=== PATIENT | male | born 1965 | race Caucasian/White ===

== ENCOUNTER 2022-10-10 08:47 | Emergency (ER) | payer OTHER, BC, SELFPAY ==
[2022-10-10] VITALS (11 sets, daily range): BP systolic 130–170; BP diastolic 79–103; PULSE 59–71; RESP 16; TEMP 36.8; O2SAT 96–99
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
== END 2022-10-10 09:52 | disposition home or self-care (01) ==
PROVIDERS: Emergency Provider Family Medicine; PCP Family Medicine
DX: M54.9 Dorsalgia, unspecified (principal); V53.0XXA Driver of pick-up truck or van injured in collision with car, pick-up truck or van in nontraffic accident, initial encounter
CPT/HCPCS: 99283; 99284; 99291

== ENCOUNTER 2025-04-21 08:59 | Emergency (ER) | payer BC, SELFPAY ==
[2025-04-21 09:01] VITALS: BP 153/97; PULSE 74; RESP 16; TEMP 35.5; O2SAT 99; BMI 27.4
--- OUTSIDE RECORDS SUMMARY | 2025-04-21 09:01 | XMS_ITS | Clinical Summary ---
Author Organization [facility] Address [address] [place] [address] Care Team Providers Care Deck Lid Fitter Name Role Phone Janusz Burger APRN, CNP Primary Care Provid er Source Comments You are receiving this document as you are listed as the primary care provider,follow-up provider, or the patient has been referred to you for consultation.This is in compliance with the Medicare and[place] Incentive Program,which states Providers who transition their patient to another setting of careor provider of care or refers their patient to another provider of care shouldprovide summary care record for each transition of care or referral. [facility] Allergies No known active allergies Medications UNKNOWN MEDICATION Indications : PN: 12/29/2008 Active aspirin 81 MG tablet Take 81 mg by mouth daily. Active simvastatin (ZOCOR) 20 MG tablet Take 20 mg by mouth daily at bedtime. Active Active Problems Problem Noted Date Diagnosed Date Hyperlipidemia 01/21/2005 Overview (04/03/2016): LW Onset: [id number] Immunizations Immunization Administration Dates Next Due TDAP (ADACEL) 12/29/2008 Td 04/30/2004,05/21/1998 Social History Tobacco Use Types Packs/Day Years Used Date Smoking Tobacco: Never Assessed Sex and Gender Information Value Date Recorded Sex Assigned at Not on file Legal Sex Male 5:31 AM CDT Gender Identity Not on file Sexual Orientation Not on file Last Filed Vital Signs Vital Sign Reading Time Taken Comments Blood Pressure 138/88 12/29/2008 11:09 AM CDT Pulse 60 12/29/2008 11:09 AM CDT Temperature 37.3 C (99.1 F) 02/28/2007 11:42 AM CDT ORAL C: 37.3 C Respiratory Rate 14 02/28/2007 11:4 2 AM CDT Oxygen Saturation - - Inhaled Oxygen Concentration - - Weight 82.6 kg (181 lb 15.8 oz) 12/29/2008 11:09 AM CDT C: 82.6kg Height 173.4 cm (5' 8.25) 12/29/2008 1 1:09 AM CDT C: 173.4cm Body Mass Index 27.47 12/29/2008 11:09 AM CDT Plan of Treatment Health Maintenance Due Date Last Done Comments Colon Cancer Screening Plan Due 1966 Adult Preventive Visit 1984 HepB Vaccine (1) 1985 Cholesterol 12/29/2013 12/29/2008, 03/05/2007, 05/26/2006, Additional history exists Pneumococcal Vaccine 50+ Yrs (1 of 1 - PCV) 2016 Zoster/Shingles Vaccine (1 of 2) 2016 DTaP/Tdap/Td Vaccine (2 - Tdap) 12/29/2018 12/29/2008, 04/30/2004, 05/21/1998 PSA Screening Discussion 01/22/2020 01/21/2019 COVID-19 Vaccine (1 - 2023- season) 2024 Influenza Vaccine (#1) 2025 HIV Screening (Preventive Services) Completed 04/30/2004, 05/21/1998 Hep C Screening (Preventive Services) Completed 04/30/2004 HepA Vaccine Aged Out No longer eligi ble based on patient's age to complete this topic Hib Vaccine Aged Out No longer eligi ble based on patient's age to complete this topic IPV (Polio) Vaccine Aged Out No longe r eligible based on patient's age to complete this topic MCV4 Vaccine Aged Out No longer eligi ble based on patient's age to complete this topic Meningococcal B Vaccine Aged Out No l onger eligible based on patient's age to complete this topic Procedures Procedure Name Priority Date/Time Associated Diagnosis Comments LIPID PANEL & DIRECT LDL (IF NEEDED) Routine 12/29/2008 12:05 PM CDT HIV ANTIBODY Routine 04/30/2004 10:57 AM CDT HEPATITIS C ANTIBODY, WITH REFLEX (ANTI-HCV) Routine 04/30/2004 10:57 AM CDT from Last 3 Months or Most Recently Relevant to Health Maintenance Results * (ABNORMAL) Lipid Panel and Direct LDL(If Needed) (12/29/2008 12:05 PM CDT) Hours Fasting 12.0 Hours HP CONVERSION Cholesterol/HDL Ratio Screen 6.8 No normal range HP CONVERSION Cholesterol 204(H) <200 mg/dL HP CONVERSION HDL Cholesterol 30(L) >40 mg/dL HP CONVERSION Triglycerides 167(H) 0 - 149 mg/dL HP CONVERSION LDL Calculated 141(H) 0 - 130 mg/dL HP CONVERSION Comment: 12/29/2008 12:0 5 PM CDT Janusz Burger APRN, LEVEL VIAL CURVATURE [facility] Result HP CONVERSION * HIV Antibody (04/30/2004 10:57 AM CDT) HIV 1/HIV 2 Non Reac Non Reac HP CONVERSION 04/30/2004 10:5 7 AM CDT Janusz Burger APRN, LEVEL [facility]IAL [facility] Result HP CONVERSION * Hepatitis C Antibody, with Reflex (04/30/2004 10:57 AM CDT) Hepatitis C Antibody Non Reac Non Reac HP CONVERSION 04/30/2004 10:5 7 AM CDT Janusz Burger APRN, [facility] Result HP CONVERSION from Last 3 Months or Most Recently Relevant to Health Maintenance Insurance [employer] Care Teams Deck Lid Fitter Relationship Specialty Start Date End Date Janusz Burger, DESK SERGEANT, LEVEL VIAL CURVATURE GAUGER [address] [place] [address] PCP - General 12/01/10
--- OUTSIDE RECORDS SUMMARY | 2025-04-21 09:01 | XMS_ITS | Clinical Summary ---
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 AHI- 15,positional; diagnosis obstructive sleep apnea MRD #1 1 unit 09/21/19 24 Active COVID-19 antigen test kit Use as directed 4 Kit 10/12/2023 6:47 PM CONSULTANT RN 10/12/19 24 Active CPAPIndications:OS A (obstructive sleep apnea) Resmed CPAP machine for home use at pressure 8.6 cmw, CPAP mask- mask of choice, fit to comfort one per 3 months 1 Each 03/31/20 24 Active nicotine (Nicotrol) 10 mg inhalerIndications :Tobacco use disorder Inhale 10 mg by mouth every hour while awake as needed for Nicotine Craving. 168 Each 04/07/20 24 Active nicotine (NICORETTE) 2 mg gumIndications:Tob acco use disorder Chew 1-2 pieces (2-4 mg) every 2 hours if needed for Nicotine Craving. 300 Each 08/22/2024 5:29 PM CONSULTANT RN 08/21/20 24 Active rosuvastatin (CRESTOR) 10 mg tabletIndications: Hyperlipidemia, unspecified hyperlipidemia type Take 1 Tablet (10 mg) by mouth at bedtime. 90 Tablet 3 08/29/2024 5:24 PM CONSULTANT RN 08/26/20 24 Active sildenafil citrate (VIAGRA) 50 mg tabletIndications: ED (erectile dysfunction) of non-organic origin Take 1 Tablet (50 mg) by mouth once daily if needed for Erectile Dysfunction. 30 Tablet 2 08/29/2024 5:25 PM CONSULTANT RN 08/26/20 24 Active nicotine 2 mg gumIndications:Tob acco use disorder Chew 2 gum (4 mg) every hour if needed for Nicotine Craving. 330 Each 3 02/18/2025 12:27 PM CDT 10/11/19 25 Active Active Problems Problem Noted Date Diagnosed Date Vitamin D deficiency 08/26/2024 GORDON . 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 Overview (02/05/2016): Diagnosis 4-2009 Left humerus Hypermetropia of right eye 12/10/2009 Pure hypercholesterolemia 11/16/2009 Resolved Problems Problem Noted Date Diagnosed Date Resolved Date Tobacco use disorder 09/06/2008 018 Overview (02/05/2016): Ex smoker Encounters Date Type Department Care Team Description 04/21/2025 8:20 AM CDT [place] [facility] [address] [place] [address] Josey Cardenas PA Laceration; Hand Injury (left) 04/21/2025 Travel from Last 3 Months Immunizations Immunization Administration Dates Next Due COVID-19 vaccine (Moderna 100mcg/0.5mL) PF, MDV 12/11/2021 COVID-19 vaccine (Pfizer-Bio NTech 30mcg/0.3mL) PF, MDV 10/09/2020,09/18/2020 HepA-HepB (Twinrix) 11/16/2014,02/15/2013 INFLUENZA, IIV3 PF (AGE >= 6 MO) 07/28/2024,06/01 Influenza, IIV3 (Age >=3 years) 07/01/2020,06/26,06/25/2010 Influenza, IIV4 07/28/2023,,09/19/2021,2018,05/07/2016,07/01/2014 Influenza, IIV4 (=>6mos) MDV 06/15/2018,06/12/20 17 Pneumococcal Conj 20-valent (Prevnar 20) 12/01/2022 Tdap 01/20/2019,12/29/2008 Zoster (Shingrix-RZV, recombinant) 12/12/2022, Family History Medical History Relation Name Comments Heart Disease Brother PR at age 42 Cancer Father brain tumor. Other Father brain tumor Heart Disease Maternal Grandfather Other Maternal Grandmother Macular degeneration Heart Disease Paternal Grandfather Hypertension Paternal Grandfather Other Paternal Grandfather eye tur n Heart Disease Paternal Grandmother PR Relation Name Status Comments Brother Alive Father (Age 37) Maternal Grandfather Maternal Grandmother Mother Alive Paternal Grandfather Paternal Grandmother Social History Tobacco Use Types Packs/Day Years Used Date Smoking Tobacco: Former Cigarettes 0.5 17 0 05/01/2004 - 05/01/2021 Smokeless Tobacco: Never Tobacco Cessation:Counseling Given: No Alcohol Use Standard Drinks/Week Comments Yes 0 (1 standard drink = 0.6 oz pur e alcohol) 7 beers a week PHQ-2 Answer Date Recorded PHQ-2 TOTAL SCORE 2 08/26/2024 Social Connections Answer Date Recorded Do you often feel lonely or isolated from those around you? 0 08/26/2024 Financial Resource Strain Answer Date R ecorded Difficulty of Paying Living Expenses 3 08/26/2024 Difficulty of Paying Living Expenses Not on file 08/26/2024 Food Insecurity Answer Date Recorded Do you worry your food will run out before you are able to buy more? 1 08/26/2024 Transportation Needs Answer Date Record ed Does lack of transportation keep you from medica l appointments? 1 08/26/2024 Does lack of transportation keep you from work, meetings or getting things that you need? 1 08/26/2024 Housing Stability Answer Date Recorded What is your housing situation today? 1 08/26/2024 Utilities Answer Date Recorded Do you have trouble paying f or utilities (for example, heat, electricity, water, phone)? 1 08/26/2024 Sex and Gender Information Value Date Recorded Sex Assigned at Not on file Legal Sex Male 7:34 AM CONSULTANT RN Gender Identity Not on file Sexual Orientation Not on file Obstetrics History Last Filed Vital Signs Vital Sign Reading Time Taken Comments Blood Pressure 150/90 04/21/2025 8:20 AM CDT Pulse 68 04/21/2025 8:20 AM CDT Temperature 37 C (98.6 F) 11/16/2014 11:35 AM CDT Respiratory Rate 14 06/09/2023 12:2 1 PM CDT Oxygen Saturation 97% 04/21/2025 8:20 AM CDT Inhaled Oxygen Concentration - - Weight 84.3 kg (185 lb 12.8 oz) 08/26/2024 8:03 AM CONSULTANT RN Height 172.7 cm (5' 8) 08/26/2024 8:03 AM CONSULTANT RN Body Mass Index 28.25 08/26/2024 8:03 AM CONSULTANT RN Plan of Treatment Health Maintenance Due Date Last Done Comments Hepatitis B series for 19+ ( 3 of 3 - Hep B Twinrix 3-dose series) 04/18/2015 11/16/2014, 02/15/2013 COVID-19 vaccine series ( season) 2024 12/11/2021, 10/09/2020, 09/18/2020 Influenza Vaccine (#1) 2025 , 07/28/2023, 07/25/2022, Additional history exists BMI (ht and wt on same day) for age 18+ 08/26/2025 08/26/2024, 03/31/2024, 01/05/2024, Additional history exists Depression screening for age 12+ 08/26/2025 08/26/20 24 Tetanus booster 01/20/2029 01/20/2019, 08/2008, 12/29/2008 Lipids for age 45-75 08/22/2029 08/22/2024, 12/04/2022, 01/23/2021, Additional history exists Colonoscopy through age 75 06/09/203006/09, 06/09/2023, 06/09/2023, Additional history exists HIV for age 15-65 Completed 07/14/2019 Pneumococcal series for age 50+ Completed Zoster (shingles) series for age 50+ Completed 12/12/2022, 12/11/2021 Hepatitis C screening for ag e 18-79 Completed 08/22/2024 Procedures Procedure Name Priority Date/Time Associated Diagnosis Comments ANTI HCV Routine 08/22/2024 8:27 AM CONSULTANT RN Encounter for hepatitis C screening test for low risk patient LIPID PANEL W REFLEX MEASURED LDL Routine 08/22/2024 8:27 AM CONSULTANT RN Lipid screening COLONOSCOPY SCREENING Routine 06/09/2023 10:52 AM CDT History of colon polyps ANTI HIV 1/2 Routine 07/14/2019 10:17 AM CONSULTANT RN Screening examination for STD (sexually transmitted disease) from Last 3 Months or Most Recently Relevant to Health Maintenance Results * (ABNORMAL) LIPID PANEL W REFLEX MEASURED LDL (08/22/2024 8:27 AM CONSULTANT RN) CHOLESTEROL, TOTAL 246(H) <200 mg/dL [facility] HDL CHOLESTEROL 39(L) > OR = 40 mg/dL [facility] TRIGLYCERIDES 244(H) <150 mg/dL [facility] Comment: If a non-fasting specimen was collected, consider repeat triglyceride testing on a fasting specimen if clinically indicated. Aspen et al. J. of Clin. Lipidol. 2015;9:129-169. LDL-CHOLESTEROL 166(H) mg/dL (calc) [facility] Comment: Reference range: <100 Desirable range <100 mg/dL for primary prevention; <70 mg/dL for patients with CHD or diabetic patients with > or = 2 CHD risk factors. LDL-C is now calculated using the Titi calculation, which is a validated novel method providing better accuracy than the Friedewald equation in the estimation of LDL-C. Nikko CROOKS et al. NAVYA. 2013;310(19): 2992-5252 (http://education.[place]/faq/NPF539) CHOL/HDLC RATIO 6.3(H) <5.0 (calc) [facility] NON HDL CHOLESTEROL 207(H) <130 mg/dL (calc) [facility] Comment: For patients with diabetes plus 1 major ASCVD risk factor, treating to a non-HDL-C goal of <100 mg/dL (LDL-C of <70 mg/dL) is considered a therapeutic option. Blood BLOOD SPECIMEN / Unknown 08/22/2024 8:27 AM CONSULTANT RN 08/22/2024 8:28 AM CONSULTANT RN us Juan Almaguer MD CHEMISTRY Final Resul t [facility] [address] [place] [address], [facility] [address] * ANTI HCV (08/22/2024 8:27 AM CONSULTANT RN) HEPATITIS C ANTIBODY NON-REACTI VE NON-REACT SMI[facility] Comment: HCV antibody was non-reactive. There is no laboratory evidence of HCV infection. In most cases, no further action is required. However, if recent HCV exposure is suspected, a test for HCV RNA (test code 27906) is suggested. For additional information please refer to http://education.[place]/faq/QFZ30v8 (This link is being provided for informational/ educational purposes only.) Blood BLOOD SPECIMEN / Unknown 08/22/2024 8:27 AM CONSULTANT RN 08/22/2024 8:28 AM CONSULTANT RN us Juan Almaguer MD SEND OUTS Final Resul t [facility] [address] [place] [address], [place] [phone] [facility] [address] [place] [address] * COLONOSCOPY (06/09/2023 11:03 AM CDT) 06/09/2023 11:0 3 AM CDT Narrative Transcriptions Nikko Tomas MD - 06/09/2023 12:10 PM CDT Patient Name: Joseph Olivares Procedure Date: 06/09/2023 Gender: Male Date of : 1965 Admit Type: Outpatient Procedure: Colonoscopy Proceduralist: Nikko Tomas MD , Rebecca Valdes, HORTENCIA(Nurse), Elisa Leal (Nurse) Referring MD: Lamont Buitrago Indications/Pre-Op Diagnosis: High risk colon cancer surveillance:Personal history of colonic polyps, High risk colon cancer surveillance: Personal history of adenoma less than 10 mm in size, High risk colon cancer surveillance: Personal historyof sessile serrated colon polyp (less than 10mm in size) with no dysplasia, Lastcolonoscopy: July 2019 Medications: Fentanyl 100 micrograms IV, Midazolam 3 mgIV, The level of sedation administered wasmoderate Procedure Description: The patient had risks, benefits and alternatives explained to andgave informed consent. The patient had a stable cardiopulmonary status and judged an adequate candidate for conscious sedation. The endoscope [id number]-[id number] was passed through the anus andadvanced to the cecum, identified by appendiceal orifice and ileocecal valve.The colonoscopy was performed without difficulty. The patient toleratedthe procedure well. The quality of the bowel preparation was good. The ileocecal valve, appendiceal orifice, and rectum were photographed. Complications: No immediate complications. Estimated Blood Loss & Specimen: Estimated blood loss: none. Specimen collected - Yes and sent to Laboratory Findings: The perianal and digital rectal examinations were normal. A 3 mm polyp was found in the ascending colon. The polyp was sessile. The polyp was removed with a cold snare. Resection and retrieval were complete. The exam was otherwise without abnormality. Impressions/Post-Op Diagnosis: - One 3 mm polyp in the ascending colon, removed with a cold snare. Resected and retrieved. - The examination was otherwise normal. Recommendation: - Patient has a contact number available for emergencies. The signsand symptoms of potential delayed complications were discussed with the patient. Return to normal activities tomorrow. Written discharge instructions were provided to the patient. - Resume previous diet. - Continue present medications. - Await pathology results. - Repeat colonoscopy is recommended. The colonoscopy date will be determined after pathology results from today's exam become available for review. Moderate Sedation: A time out was performed before the procedure. Moderate (conscious) sedation was administered by the endoscopy nurse and supervised bythe endoscopist. The following parameters were monitored: oxygensaturation, heart rate, blood pressure, EKG, CO2, respiratory rate, adequacy of pulmonary ventilation and reponse to care. Please refer to the patient's medical record flowsheets and nursing notes for moderate sedation details. Total physician intraservice time was 13 minutes. Nikko Tomas MD 06/09/2023 12:10:44 PM This report has been signed electronically. Note Initiated On: 06/09/2023 11:03 AM Procedure Code(s): --- Professional --- 88566, Colonoscopy, flexible; with removalof tumor(s), polyp(s), or other lesion(s) bysnare technique Diagnosis Code(s): --- Professional --- D12.2, Benign neoplasm of ascending colon Z86.010, Personal history of colonicpolyps CPT copyright 2021 [employer]. All rights reserved. The codes documented in this report are preliminary and upon radioisotope technologist reviewmay be revised to meet current compliance requirements. Scope In: 11:52:27 AM Scope Withdrawal Time 0 hours 8 minutes 47 seconds Scope Out: 12:03:29 PM us Nikko Tomas MD PROCEDURE ORD Final Res ult * ANTI HIV 1/2 (07/14/2019 10:17 AM CONSULTANT RN) HIV-1/HIV-2 ANTIBODY Non-Reacti ve Non-Reacti ve 07/14/2019 1:52 PM CONSULTANT RN [facility] Comment:HIV-1 p24 and HIV-1/ HIV-2 Ab not detected. Blood BLOOD SPECIMEN / Unknown Venipuncture / Unknown 07/14/2019 10:17 AM CONSULTANT RN 07/14/2019 10:18 AM CONSULTANT RN us Lamont Buitrago MD SEND OUTS Final Res ult [facility] [address] [place] [address], from Last 3 Months or Most Recently Relevant to Health Maintenance Insurance [employer] Care Teams Delivery Truck Driver Heavy Relationship Specialty [place] [id number] [place] [address] PCP - General Family Practice 08/26/24
[2025-04-21 09:19] VITALS: BP 153/97; PULSE 74; RESP 16; TEMP 35.5; O2SAT 99
--- NOTE | 2025-04-21 09:22 | ED.GENADULT ---
HPI - General Adult General Chief complaint: Laceration/Wound Stated complaint: left hand deep cut Time Seen by Provider: 04/21/25 09:05 History of Present Illness HPI narrative: Patient is up-to-date on tetanus and cut his left hand on the dorsum reaching into a soap drier tender. He reported good amount of bleeding was cleansed and covered at a line a clinic in the was sent to the ER. He is reporting full range of motion his hand Related Data Home Medications ?Medication ?Instructions ?Recorded ?Confirmed No Known Home Medications 10/10/22 10/10/22 Allergies Allergy/AdvReac Type Severity Reaction Status Date / Time white tape Allergy Unknown Uncoded 10/10/22 09:09 Review of Systems Status of ROS: Reports: 6 or more systems reviewed and unremarkable except as noted in History and below [facility] Social History Smoking Status: Former smoker How often do you have a drink containing alcohol: 4 or more times a week How many standard drinks containing alcohol do you have on a typical day: 3 or 4 How often do you have six or more drinks on one occasion: Never AUDIT-C Alcohol total score: 5 Non-prescribed substance use: marijuana (any form) Exam Narrative: Exam Narrative: Objective patient's vital signs are within normal limits other than slightly elevated systolic pressure He is alert or x3 very pleasant man On the left dorsum of his hand he has got a semicircular laceration that is through the skin to the fat but not in to tendon tissue or vascular structures. He has full extension flexion of both of all his fingers on the left hand. He has no sensory changes. Good hemostasis. No bleeding. Const: Vital Signs, click to edit/add: Vital Signs - 24 hr 04/21/25 09:01 04/21/25 09:19 Temperature 96 F L 96 F L Pulse Rate [Pulse Oximeter] 74 74 Respiratory Rate 16 16 Blood Pressure [Ri ght Upper Arm] 153/97 H 153/97 H Pulse Oximetry 99 99 Oxygen Delivery Me thod Room Air Room Air Course Vital Signs Vital signs: Initial Vital Signs Temperature 96 F L 04/21/25 09:01 Temperature Source Temporal Artery Scan 04/21/25 09:01 Pulse Rate 74 04/21/25 09:01 Respiratory Rate 16 04/21/25 09:01 Blood Pressure 153/97 H 04/21/25 09:01 Blood Pressure Mean 115 H 04/21/25 09:01 Blood Pressure Position Sitting 04/21/25 09:01 Pulse Oximetry 99 04/21/25 09:01 Oxygen Delivery Method Room Air 04/21/25 09:01 Vital Signs Temperature 96 F L 04/21/25 09:01 Pulse Rate 74 04/21/25 09:01 Respiratory Rate 16 04/21/25 09:01 Blood Pressure 153/97 H 04/21/25 09:01 Pulse Oximetry 99 04/21/25 09:01 Oxygen Delivery Method Room Air 04/21/25 09:01 Temperature 96 F L 04/21/25 09:19 Pulse Rate 74 04/21/25 09:19 Respiratory Rate 16 04/21/25 09:19 Blood Pressure 153/97 H 04/21/25 09:19 Pulse Oximetry 99 04/21/25 09:19 Oxygen Delivery Method Room Air 04/21/25 09:19 Medical Decision Making MDM Narrative Medical decision making narrative: Patient is up to take it date on tetanus by his state record Procedure: After sterile and aseptic solution and irrigation, the wound was injected with 1% xylocaine without epinephrine for anesthesia. The patient is Rich she achieved good anesthesia. A 3-0 simple and interrupted Ethilon sutures were placed. Good skin edge approximation, good hemostasis. Good and normal neurovascular and tendon function after repair. After irrigation and anesthesia there was no evidence of tendon involvement on inspection. Patient tolerated this well. Recommend suture removal in 7 days, watch for redness infection keep covered for 48 hours then may shower bathe normally. I do not think there is need for antibiotics as it is fairly shallow and I was able to irrigated out well. Return if problems or concerns. Light use of the hand for the next 3-4 days and may resume normal activities if not painful. Discharge Plan Discharge Clinical Impression: Laceration Patient Disposition: Home, Self-Care Condition: Improved Additional Instructions: Suture removal in 7 days, watch for redness or infection, light activity for a few days and then may resume normal activities, keep covered and dry for 24 hours then may shower bathe normally. Activity Level: Light activity Discharge Diet: Regular Prescriptions: No Action No Known Home Medications Follow Up/Referrals: Lamont Buitrago MD [Primary Care Provider, Family Practice] Stand Alone Forms: MyHealth Info Instructions
== END 2025-04-21 09:33 | disposition home or self-care (01) ==
LOC: ED 09:31
PROVIDERS: Emergency Provider Family Medicine; PCP Family Medicine
DX: S61.412A Laceration without foreign body of left hand, initial encounter (principal); W26.9XXA Contact with unspecified sharp object(s), initial encounter
CPT/HCPCS: 12001; 99283; 99284